=== PATIENT | female | born 1975 | race Caucasian/White ===

== ENCOUNTER 2017-11-13 09:39 | Emergency (ER) | payer OTHER ==
[2017-11-13 10:09] VITALS: BP 135/79; PULSE 98; TEMP 100.2; BMI 29.2
[2017-11-13] MEDS ORDERED: ACETAMINOPHEN 325 MG TABLET (FP) PO ONE (11:26)
[2017-11-13] MEDS ORDERED: ACETAMINOPHEN 325 MG TABLET (FP) ONE (11:31)
--- NOTE | 2017-11-13 11:34 | PDOC ---
History of Present Illness - General Chief Complaint: Cold Symptoms Stated Complaint: FEVER, HEADACHES Time Seen by Provider: 11/13/17 11:19 History Source: Patient Exam Limitations: No Limitations - History of Present Illness Initial Comments: 11/13/17 11:31 42 yr with c/o fever headache sore throat for 3 days . no sick contacts, no nvd. pt took advil at 9am today. Timing/Duration: reports: week (3 -4 days ) Severity: reports: moderate Past History - Past Medical History Allergies/Adverse Reactions: Allergies Allergy/AdvReac Type Severity Reaction Status Date / Time No Known Allergies Allergy Verified 11/13/17 10:07 Home Medications: Ambulatory Orders NK [No Known Home Medication] 11/13/17 COPD: No Other medical history: migraines - Suicide/Smoking/Psychosocial Hx Smoking History: Never smoked Information on smoking cessation initiated: No Hx Alcohol Use: No Drug/Substance Use Hx: No Substance Use Type: None *Physical Exam - Vital Signs Last Vital Signs Temp Pulse Resp BP Pulse Ox 100.2 F H 98 H 18 135/79 100 11/13/17 10:07 11/13/17 10:07 11/13/17 10:07 11/13/17 10:07 11/13/17 10:07 - Physical Exam General Appearance: Yes: Nourished, Appropriately Dressed HEENT: positive: EOMI, ELISA Neck: positive: Supple Respiratory/Chest: positive: Lungs Clear, Normal Breath Sounds Cardiovascular: positive: Regular Rhythm, Regular Rate Gastrointestinal/Abdominal: positive: Normal Bowel Sounds, Soft Lymphatic: negative: Adenopathy Musculoskeletal: positive: Normal Inspection Extremity: positive: Normal Capillary Refill, Normal Inspection, Normal Range of Motion Integumentary: positive: Normal Color, Dry, Warm Neurologic: positive: Fully Oriented, Alert, Normal Mood/Affect, Normal Response , Motor Strength 5/5 Medical Decision Making - Medical Decision Making 11/13/17 11:34 cc: fever, headache, sore throat neg nvd will check rapid strep will give tylenol now non toxic stable vitals 11/13/17 12:51 flu swab was not collected on this patient , her label was placed on another specimen by the [employer]. this pt does not have a positive flu swab in ER today. *DC/Admit/Observation/Transfer Diagnosis at time of Disposition: Viral illness Pharyngitis Qualifiers: Pharyngitis/tonsillitis etiology: unspecified etiology Qualified Code(s): J02.9 - Acute pharyngitis, unspecified - Discharge Dispostion Disposition: HOME Condition at time of disposition: Good - Referrals - Patient Instructions Printed Discharge Instructions: DI for Common Cold Additional Instructions: gargle with warm salt water 4-5 times a day take ibuprofen 600mg every 8hrs for fever and body aches as needed increase water in your diet increase vitamin C and zinc intake to boost immune system follow with your doctor for any worsening symptoms - Post Discharge Activity
== END 2017-11-13 12:59 | disposition home or self-care (01) ==
LOC: JERFT 09:39
DX: J02.9 Acute pharyngitis, unspecified (principal); B97.89 Other viral agents as the cause of diseases classified elsewhere
CPT/HCPCS: 87070; 87430; 87804; 99281-25

== ENCOUNTER 2022-04-04 04:45 | Day surgery (SDC) | payer OTHER ==
[2022-03-29 14:37] VITALS: BMI 27.6
[2022-04-04 13:02] VITALS: TEMP 97.6
[2022-04-04 13:44] VITALS: BP 158/82; PULSE 65
== END 2022-04-04 14:36 | disposition home or self-care (01) ==
LOC: JASU-ENDO 04:45
PROVIDERS: ATTEND Internal Medicine Gastroenterology
PROC: 0DJD8ZZ Inspection of Lower Intestinal Tract, Via Natural or Artificial Opening Endoscopic (ICD-10-PCS; principal; 2022-04-04 11:15)
DX: Z12.11 Encounter for screening for malignant neoplasm of colon (principal); D50.9 Iron deficiency anemia, unspecified
CPT/HCPCS: 81025; 88305-TC; 88342-TC